=== PATIENT | male | born 1990 | race Caucasian/White ===

== ENCOUNTER 2019-10-18 11:37 | Emergency (ER) | payer MEDICARE, OTHER, SELFPAY ==
[2019-10-18 11:42] VITALS: BP 131/84; PULSE 78; RESP 16; TEMP 36.6; O2SAT 98; BMI 28.2
--- NOTE | 2019-10-18 11:54 | CT_ITS ---
PROCEDURE: CT ORBIT BI WO CON Patient Age:29Y CLINICAL HISTORY: FB in right eye Patient sharpening blade on lawn more 2 days ago when a piece of metal went into his eye patient got a piece out yesterday but still feels like there may be something there. COMPARISON: No exams were available for comparison TECHNIQUE: No IV contrast Helical axial images obtained with sagittal and coronal reformats. All CT scans at the facility use one or more dose reduction, viz: automated exposure control, ma/kV adjustment per patient size (including targeted exams where dose is matched to indication, i.e. head), or iterative reconstruction technique. FINDINGS: Orbits: No radiopaque foreign body is seen at either orbit with attention particularly directed to the right orbit Review of images in all 3 planes reveals no good evidence of metallic foreign body.. CT is exquisitely sensitive to metal.. There are some scattered slight relatively hyperdense individual pixels foci seen in 1 plane on this slightly grainy low photon scan, but when reviewed in all 3 planes these do not persist thus with no good evidence of metallic foreign body Both globes appears satisfactory and demonstrate normal density internally. No retrobulbar are pathology. Intra ocular muscles appear satisfactory. Optic nerve unremarkable. Only question perhaps some very minor is soft tissue swelling overlying right lid. The visualized frontal ethmoid sphenoid sinuses are clear. Left maxillary sinuses clear. There is a mucous retention cyst at posterior wall right maxillary sinus 15 mm size. Floor of maxillary sinuses not included on this study. Also note sigmoid deviation of the nasal septum on coronal views the lower portion septum with convexity to the left; and upper portion slight convexity rightward. On axial images the appears to tilts leftward. . Otherwise facial bones appear intact. Limited images through the inferior anterior portions of brain appears satisfactory. . IMPRESSION: No metallic foreign body evident right eye Orbits and globes appear intact Incidental observations: . 15 mm mucous retention cyst posterior right maxillary sinus otherwise visualized paranasal sinuses clear Dictated by: German Vega MD 10/18/2019 13:08 Electronically signed by German Vega MD in [facility] 10/18/2019 13:08
--- NOTE | 2019-10-18 12:09 | HMH.EDEYEP ---
ED Disposition Clinical Impression: Foreign body, eye Qualifiers: Encounter type: initial encounter Laterality: right Qualified Code(s): T15.91XA - Foreign body on external eye, part unspecified, right eye, initial encounter Disposition: Home, Self-Care Condition on Discharge: Good Instructions: DI for Corneal Foreign Body-Eye Additional Instructions: If symptoms are worsening or not improving over the next 24 hours, call Dr. Hobson at [phone] or return to the emergency department. Otherwise, follow-up with Dr. Hobson on Sunday for reevaluation. - Critical Care Critical Care Time: No Attestation: On 10/18/19, the high probability of a clinically significant, sudden or life threatening deterioration of the following system(s) required my full and direct attention, intervention and personal management. The time I documented below is in addition to time spent performing reported procedures but includes the following listed in this critical care notation. Medical Decision Making - Medical Records Medical records reviewed: Yes: I reviewed the patient's medical records. - Chauncey Inquiry Pt receiving controlled substance: No Vital Signs: 10/18/19 11:42 10/18/19 13:01 Temperature 97.9 F Temperature Source Oral Pulse Rate [Right Radial] 78 63 Respiratory Rate 16 Blood Pressure [Right Arm] 131/84 132/76 Blood Pressure Mean [Right Arm] 99 94 Blood Pressure Source [Right Arm] Manual Cuff/ Doppler Automatic Cuff Blood Pressure Position [Right Arm] Sitting Sitting 02 Sat by Pulse Oximetry 98 98 Oxygen Delivery Method Room Air Room Air Orders (Tests/Meds): ED MEDICATIONS Discontinued Medications Generic Name Dose Route Start Last Admin Trade Name Freq PRN Reason Stop Dose Admin Tetanus/Reduced Diphtheria/Acell Pertussis 0.5 ml 10/18/19 11:54 Adacel Tdap 0.5ml Syringe IM 10/18/19 11:55 .ONCE ONE - CT Data CT Scan: Other (orbits) Time Received: 13:[address] Reviewed: Yes: I have reviewed the patient's CT results Findings Narrative: No radiopaque foreign body Medical Decision Narrative: Patient does not have any signs of ruptured globe. CT scan shows no radiopaque foreign body. He does have a pinpoint area that may represent a rust ring at the 10 o'clock position over the iris. No visual changes per the patient. I discussed this case with Dr. Hobson who will see the patient early next week. Advised antibiotic cream and that his symptoms are getting worse or not improving within the next 24 hours to give him a call for more expeditious treatment. Eye Problem HPI - General Chief complaint: Eye Problems Stated complaint: AO [id number] FO in right eye Time Seen by Provider: 10/18/19 12:05 Mode of Arrival: Ambulatory Limitations: No Limitations Description of Symptoms (Recalled from ER Triage Doc. by RN): Pt reports possible f/b in R eye. Pt reports he was sharpening blades on mower 2 days ago when a piece of metal in his eye, states his brother got a piece of metal out of his eye yesterday but he still feels like there is something in there. - History of Present Illness HPI Narrative: This is a 29-year-old male with no significant past medical history who presents to the emergency department for concerns of possible metal retained in the right eye. He was grinding a mower blade 2 days ago when he got some metal in his eye. His brother tried to remove it with a Q-tip and got some of the metal out, but he still sees a small chano at the 10 o'clock position over the iris, out of range of the pupillary opening. He denies any visual changes. He does have an irritation sensation where the black spot on his irises. He has tried flushing his eye. Tetanus not up-to-date. No fevers. He wears glasses, no contacts. - Related Data Patient tetanus UTD: No Previous Rx's Medication Instructions Recorded azithromycin 250 mg tablet 250 mg PO .COMPLEX 5 Days #6 tab 08/12/18 cetirizine 10 mg
--- NOTE | 2019-10-18 12:25 | PC.NURSE ---
pt to CT
[2019-10-18 13:01] VITALS: BP 132/76; PULSE 63; O2SAT 98
[2019-10-18 13:31] VITALS: BP 132/75; PULSE 63; RESP 18; TEMP 36.6; O2SAT 98
--- NOTE | 2019-10-18 13:31 | PC.NURSE ---
visual acuity R 20/30 L 20/25
== END 2019-10-18 13:32 | disposition home or self-care (01) ==
PROVIDERS: Emergency Provider Emergency Medicine; PCP Physician Assistant
DX: T15.91XA Foreign body on external eye, part unspecified, right eye, initial encounter (principal); Z87.891 Personal history of nicotine dependence; Z23 Encounter for immunization
CPT/HCPCS: 70480; 90471; 90715; 99282

== ENCOUNTER → 2020-08-16 15:07 | Outpatient (CLI) | payer MEDICARE, OTHER, SELFPAY ==
[2020-08-16 15:17] LABS: Basophils # 0.1 K/mm3 (0-0.2); Basophils % 1.8 % (0.1-2.0); Eosinophils # 0.3 K/mm3 (0.0-0.4); Eosinophils % 5.3 % (0.1-12.0); Hemoglobin 15.1 g/dL (14.1-18.0); Lymphocytes # 1.7 K/mm3 (0.7-4.5); Lymphocytes % 31.1 % (10-50); Mean Corpuscular HGB Conc 32.8 g/dL (31.8-35.4); Mean Corpuscular Hemoglobin 28.1 pg (27.0-31.2); Mean Corpuscular Volume 85.7 fl (80-94); Monocytes # 0.4 K/mm3 (0.1-1.0); Monocytes % 7.7 % (1.7-9.3); Neutrophils # 2.9 K/mm3 (1.8-7.8); Platelet Count 236 K/mm3 (142-424); Red Blood Count 5.37 M/mm3 (4.60-6.20); White Blood Count 5.4 K/mm3 (4.8-10.8)
[2020-08-16 15:32] LABS: Chloride 104 mmol/L (98-107); Potassium 4.9 mmoL/L (3.5-5.1); Sodium 141 mmol/L (136-145)
[2020-08-16 15:34] LABS: Blood Urea Nitrogen 16 mg/dl (9-20); Estimated Glomerular Filt Rate 88 ml/min (>60); GFR (African American) 106 ML/MIN (>60)
[2020-08-16 15:35] LABS: Alanine Aminotransferase 53 U/L (12-78); Albumin Level 4.9 g/dl (3.5-5.0); Alkaline Phosphatase 63 U/L (38-126); Anion Gap 10.9 mEq/L (5-15); Aspartate Amino Transferase 43 U/L (17-59); Bilirubin,Total 0.6 mg/dl (0.2-1.3); Carbon Dioxide 31 mmol/L (22.0-30.0); Chol/HDL Ratio 4.2 (1-3.5); Cholesterol 192 mg/dl (140-200); Globulin 2.5 g/dL (1.3-3.2); Glucose 109 mg/dl (74-100); HDL Cholesterol 46 mg/dl (40-60); Total Protein,Serum 7.4 g/dl (6.3-8.2); Triglycerides 134 mg/dl (30-150); VLDL Cholesterol 27 mg/dL (0-40)
[2020-08-16 15:47] LABS: Direct LDL Cholesterol 117.84 mg/dL (100-129)
[2020-08-16 15:50] LABS: Free T4 (Free Thyroxine) 0.95 ng/dl (0.78-2.19)
[2020-08-16 15:52] LABS: 25-OH Vitamin D, Total 29.3 ng/mL (30-100)
[2020-08-16 16:18] LABS: Thyroid Stimulating Hormone 1.52 uIU/mL (0.465-4.68)
== END ==
PROVIDERS: Visit Provider Physician Assistant
DX: E78.5 Hyperlipidemia, unspecified (principal); Z00.00 Encounter for general adult medical examination without abnormal findings; E55.9 Vitamin D deficiency, unspecified
CPT/HCPCS: 80053; 80061; 82306; 84439; 84443; 85025

== ENCOUNTER → 2020-08-24 08:11 | Outpatient (CLI) | payer MEDICARE, OTHER, SELFPAY ==
--- NOTE | 2020-08-24 08:21 | US_ITS ---
PROCEDURE: US ABDOMEN LIMITED CLINICAL INDICATION: RUQ pain COMPARISON: No exams were available for comparison FINDINGS: PANCREAS: Unremarkable. No obvious mass or abnormal fluid collection. No ductal dilatation LIVER: No focal liver lesions demonstrated. Homogeneous echogenicity. No intrahepatic biliary ductal dilatation evident. There is appropriate direction of blood flow within a non dilated portal vein RIGHT KIDNEY: Unremarkable. Normal size and echogenicity. No hydronephrosis GALLBLADDER: No gallstones, gallbladder wall thickening, pericholecystic fluid, or biliary dilatation. Specular echoes are present in the gallbladder may be due to small amount sludge or debris. No shadowing stones. IMPRESSION: No gallstones apparent. There is a small amount of gallbladder sludge. Dictated by: Husam Rayo MD 08/24/2020 16:52 Husam Rayo MD in [facility] 08/24/2020 16:52
== END ==
PROVIDERS: PCP Physician Assistant; Visit Provider Physician Assistant
DX: R10.11 Right upper quadrant pain (principal)
CPT/HCPCS: 76705

== ENCOUNTER → 2020-09-13 12:00 | Outpatient (CLI) | payer MEDICARE, OTHER, SELFPAY ==
--- NOTE | 2020-09-13 12:01 | NM_ITS ---
PROCEDURE: NM HEPATOBILIARY W PHARM CLINICAL INDICATION: Abnormal ultrasound Abdominal pain COMPARISON: No exams were available for comparison TECHNIQUE: DOSE: 8.45 mCi technetium Choletec. Fatty meal was given with Ensure FINDINGS: Homogeneous activity is present within the hepatic parenchyma. Activity is present in the gallbladder by 30 minutes. Activity is present in the small bowel by 10 minutes. The gallbladder ejection fraction is calculated to be 30 minutes. CCK-The patient did not report pain or other symptoms during fatty meal ingestion. IMPRESSION: 1. No evidence of common or cystic duct obstruction. 2. The gallbladder is visualized after the small bowel and the ejection fraction is slightly low at 30 percent. These findings may be seen with gallbladder dyskinesia.. Correlation with clinical parameters are needed. Dictated by: Husam Rayo MD 09/14/2020 16:05 Husam Rayo MD in [facility] 09/14/2020 16:05
== END ==
PROVIDERS: PCP Physician Assistant; Visit Provider Physician Assistant
DX: R93.2 Abnormal findings on diagnostic imaging of liver and biliary tract (principal)
CPT/HCPCS: 78227; A9537

== ENCOUNTER → 2020-10-13 13:14 | Outpatient (CLI) | payer MEDICARE, OTHER, SELFPAY ==
[2020-10-13 13:38] LABS: Basophils # 0.1 K/mm3 (0-0.2); Basophils % 1.3 % (0.1-2.0); Eosinophils # 0.4 K/mm3 (0.0-0.4); Eosinophils % 5.9 % (0.1-12.0); Hematocrit 44.8 % (42.0-52.0); Hemoglobin 15.2 g/dL (14.1-18.0); Lymphocytes # 1.9 K/mm3 (0.7-4.5); Lymphocytes % 30.5 % (10-50); Mean Corpuscular Hemoglobin 28.4 pg (27.0-31.2); Mean Corpuscular Volume 83.7 fl (80-94); Mean Platelet Volume 7.4 fl (7.4-10.4); Monocytes # 0.4 K/mm3 (0.1-1.0); Neutrophils # 3.5 K/mm3 (1.8-7.8); Neutrophils % 56.3 % (37.0-80.0); Platelet Count 245 K/mm3 (142-424); Red Blood Count 5.36 M/mm3 (4.60-6.20); Red Cell Distribution Width 12.5 % (11.5-17.5); White Blood Count 6.3 K/mm3 (4.8-10.8)
[2020-10-13 14:17] LABS: Alanine Aminotransferase 39 U/L (12-78); Albumin Level 4.7 g/dl (3.5-5.0); Albumin/Globulin Ratio 1.8 (1.1-1.8); Alkaline Phosphatase 61 U/L (38-126); Anion Gap 11.1 mEq/L (5-15); Aspartate Amino Transferase 34 U/L (17-59); Bilirubin,Total 0.9 mg/dl (0.2-1.3); Blood Urea Nitrogen 6 mg/dl (9-20); Calcium 9.6 mg/dl (8.4-10.2); Carbon Dioxide 32 mmol/L (22.0-30.0); Chloride 101 mmol/L (98-107); Estimated Glomerular Filt Rate 99 ml/min (>60); GFR (African American) 120 ML/MIN (>60); Globulin 2.6 g/dL (1.3-3.2); Glucose 83 mg/dl (74-100); Potassium 5.1 mmoL/L (3.5-5.1); Sodium 139 mmol/L (136-145); Total Protein,Serum 7.3 g/dl (6.3-8.2)
== END ==
PROVIDERS: Visit Provider Surgery
DX: J30.9 Allergic rhinitis, unspecified (principal); R10.11 Right upper quadrant pain
CPT/HCPCS: 36415; 80053; 85025; U0003

== ENCOUNTER 2020-10-15 08:19 | Day surgery (SDC) | payer MEDICARE, OTHER, SELFPAY ==
[2020-10-06 15:08] VITALS: BMI 28.8
[2020-10-15] VITALS (11 sets, daily range): BP systolic 122–148; BP diastolic 76–87; PULSE 57–77; RESP 12–18; TEMP 36.3–43; O2SAT 94–99
--- NOTE | 2020-10-15 08:44 | SUR.PREOP ---
Abdomen clipped in preop by Manjula TAVARES
--- NOTE | 2020-10-15 09:13 | HMH.ANESCL ---
[facility] Anesthesia Checklist - Patient Identification Patient Identification: Arm Band - Structural Data Admitted From: Home Planned Operative Procedure/s: Lap. cholecystectomy Consent for Planned Operative Procedure(s) Verified: Yes - NPO Status Verified Time NPO: 00:00 - Additional verifications Anesthesia Reactions: No Hx Blood Transfusions: No Blood Transfusion Reaction: No - Airway Assessment C-Spine Mobility Assessed: Yes TMJ Mobility Assessed: Yes Dentition: Good Dentition - Neurological Assessment Level of Consciousness: Awake Hx Seizures: No Numbness or tingling in extremities: No - Anesthesia Plan Anesthesia Risk discussed: Yes Anesthesia Plan: Verified ASA Class: I Anesthesia Type: General [facility] History I have reviewed the patient's past medical history: Yes Medical History: Denies:: Cancer, Diabetes Mellitus Type 1, Diabetes Mellitus Type 2, Hyperlipidemia, Hypertension, Internal Pacemaker, MRSA, Pulmonary Embolism, Renal Disease, Seizures *Have you ever received a pneumonia vaccine?: No *Have you received a flu vaccine this season?: No Other Medical History: Denies: Blood Transfusion Reaction Anesthesia experience/problems:: None Other Surgeries: Yes: No Previous Surgery. No: Pacemaker Amputation: No Fractures: No - *Social History Last grade of school completed: High school graduate Smoking Status: Current some day smoker Tobacco Type: smokeless tobacco # Packs/Day (cigarettes): 1 Alcohol Intake: current Alcohol Intake Frequency:: a few times a month Substance Use Type: denies use *Occupational Status:: employed Housing: house Household Members: family *Travel in the last 8 weeks: None Family Hx:: Diabetes, Hyperlipidemia, Hypertension, Stroke
--- NOTE | 2020-10-15 10:44 | HMH.OPNOTE ---
Date of procedure: 10/15/20 Pre-op Diagnosis:: Biliary dyskinesia Post-op Diagnosis:: Same Procedure performed:: Laparoscopic cholecystectomy Surgeon:: Jose Montez MD HEAD OF BIOLOGY:: Ney Ryan Anesthesia: GETA Estimated blood loss (mL): 15 Operative findings:: Infundibular thickening Operative note:: After informed consent was obtained, the patient was taken to the operating room and placed in the supine position. General anesthesia was induced and the abdomen was prepped and draped in a sterile fashion. After infiltration with local anesthetic an infraumbilical incision was made. A Veress needle was placed in position. The abdomen was insufflated. A 5 mm optical trocar was placed in position. Under direct visualization, a 12 mm trocar was placed in the subxiphoid position and 2 additional 5 mm trocars were placed in the right upper quadrant. The gallbladder was elevated up and over the liver margin. The tissue around the cystic duct was carefully dissected. 3 clips were placed proximally and the duct was transected with harmonic marcy. Harmonic marcy were then utilized to dissect the gallbladder away from the liver margin with careful attention to the control of the cystic artery. The gallbladder was placed in a retrieval bag and removed through the subxiphoid trocar site. The right upper quadrant was thoroughly irrigated. No active bleeding or bile leak was noted. Fascia at the subxiphoid trocar site was reapproximated utilizing the NeoClose device. The remaining trocars were removed. All wounds were irrigated and skin was closed with 4-0 Monocryl in a subcuticular fashion. Steri-Strips were applied. The patient's anesthetic agents were reversed and extubation was completed prior to transfer to recovery in stable condition. Condition: stable Disposition: PACU Specimens:: Gallbladder and contents Complications:: No immediate
--- NOTE | 2020-10-15 10:55 | HMH.ANESI ---
[facility] Anesthesia Record Part I Intake, IV Amount: 1,500 Estimated blood loss (mL): 0 Urine output (mL): 0 Blood Pressure: 145/87 SaO2: 95 Pulse Rate: 72 Respiratory Rate: 12 Temperature: 97.5 F Patient is:: Awake, Stable Stable to PACU at:: 10:55
--- NOTE | 2020-10-15 14:38 | P.PN_ITS ---
[facility] Anesthesia Record Part II Discharge Time: 11:25 Destination: Surgical Day Care (OP Surgery) PACU nurse assessment reviewed?: Yes Patient Condition:: Good Anesthesia Complications:: None Swallowing reflex intact?: Yes Cyanosis?: No Blood Pressure: 141/81 Pulse Rate: 57 Temperature: 97.4 F Mental Status: Alert & Oriented Pain level:: 0 Nausea and/or vomitting:: None Intake, IV Amount: 0
== END 2020-10-15 12:05 | disposition home or self-care (01) ==
LOC: OR 08:20
PROVIDERS: PCP Physician Assistant; Visit Provider Surgery
PROC: 0FT44ZZ Resection of Gallbladder, Percutaneous Endoscopic Approach (ICD-10-PCS; CPT 47562; principal; 2020-10-15 09:45)
DX: K82.8 Other specified diseases of gallbladder (principal); Z72.0 Tobacco use; Z83.3 Family history of diabetes mellitus; Z82.3 Family history of stroke; Z82.49 Family history of ischemic heart disease and other diseases of the circulatory system; Z83.438 Family history of other disorder of lipoprotein metabolism and other lipidemia; Z79.899 Other long term (current) drug therapy
CPT/HCPCS: 47562; 88304; J2405; J2710

== ENCOUNTER → 2022-06-19 23:30 | Outpatient (CLI) | payer MEDICARE, OTHER, SELFPAY ==
[2022-06-19 18:20] LABS: Alanine Aminotransferase 52 U/L (12-78); Albumin/Globulin Ratio 1.7 (1.1-1.8); Alkaline Phosphatase 61 U/L (38-126); Anion Gap 12.6 mEq/L (5-15); Aspartate Amino Transferase 41 U/L (17-59); Bilirubin,Total 0.6 mg/dl (0.2-1.3); Blood Urea Nitrogen 12 mg/dl (9-20); Calcium 9.4 mg/dl (8.4-10.2); Carbon Dioxide 31 mmol/L (22.0-30.0); Chloride 105 mmol/L (98-107); Chol/HDL Ratio 4.6 (1-3.5); Cholesterol 218 mg/dl (140-200); Estimated Glomerular Filt Rate 98 ml/min (>60); GFR (African American) 118 ML/MIN (>60); Globulin 2.9 g/dL (1.3-3.2); Glucose 96 mg/dl (74-100); HDL Cholesterol 47 mg/dl (40-60); Potassium 4.6 mmoL/L (3.5-5.1); Sodium 144 mmol/L (136-145); Total Protein,Serum 7.9 g/dl (6.3-8.2); Triglycerides 327 mg/dl (30-150); VLDL Cholesterol 65 mg/dL (0-40)
[2022-06-19 18:29] LABS: Basophils # 0.2 K/mm3 (0-0.2); Basophils % 2.5 % (0.1-2.0); Eosinophils # 0.4 K/mm3 (0.0-0.4); Eosinophils % 5.6 % (0.1-12.0); Lymphocytes # 1.8 K/mm3 (0.7-4.5); Lymphocytes % 26.6 % (10-50); Mean Corpuscular HGB Conc 33.4 g/dL (31.8-35.4); Mean Corpuscular Hemoglobin 28.2 pg (27.0-31.2); Mean Corpuscular Volume 84.5 fl (80-94); Mean Platelet Volume 8.2 fl (7.4-10.4); Monocytes # 0.4 K/mm3 (0.1-1.0); Monocytes % 5.4 % (1.7-9.3); Neutrophils # 4.1 K/mm3 (1.8-7.8); Neutrophils % 59.8 % (37.0-80.0); Platelet Count 255 K/mm3 (142-424); Red Blood Count 5.68 M/mm3 (4.60-6.20); Red Cell Distribution Width 12.9 % (11.5-17.5); White Blood Count 6.8 K/mm3 (4.8-10.8)
[2022-06-19 18:32] LABS: Direct LDL Cholesterol 123.13 mg/dL (100-129)
[2022-06-19 18:37] LABS: 25-OH Vitamin D, Total 35.4 ng/mL (30-100)
[2022-06-19 19:29] LABS: Thyroid Stimulating Hormone 1.48 uIU/mL (0.465-4.68)
== END ==
PROVIDERS: PCP Physician Assistant; Visit Provider Physician Assistant
DX: Z00.00 Encounter for general adult medical examination without abnormal findings (principal); Z83.3 Family history of diabetes mellitus; E55.9 Vitamin D deficiency, unspecified; J30.9 Allergic rhinitis, unspecified; E78.00 Pure hypercholesterolemia, unspecified
CPT/HCPCS: 80053; 80061; 82306; 84443; 85025

== ENCOUNTER 2024-06-07 11:44 | Emergency (ER) | payer MEDICARE, OTHER, SELFPAY ==
[2024-06-07] VITALS (11 sets, daily range): BP systolic 128–161; BP diastolic 79–98; PULSE 63–85; RESP 18–20; TEMP 36.4–36.8; O2SAT 96–98; BMI 27.3
--- NOTE | 2024-06-07 12:05 | HMH.EDGENADL ---
Discharge Plan Disposition Patient Disposition: Home, Self-Care Condition: Good Prescriptions Prescriptions: New pantoprazole [Protonix] 40 mg tablet,delayed release (DR/EC) 40 mg PO DAILY 28 Days Qty: 28 0RF No Action fluticasone propionate 16 GM spray,suspension 1 spray INTRANASAL QDAY Rx Instructions: administer into each nostril Referrals Follow up/Referrals: Janine Blue PA [Primary Care Provider] - See instructions Clinical Impressions Clinical Impression: Esophageal reflux Instructions Patient Instructions: DI for Acute Abdominal Pain Print Language Print Language: Indian Discharge ED Provider: Arturo Kohli General Adult HPI <Aura Kaminski (ED), [employer] TECH[employer]ICAL OFFICER - Last Filed: 06/07/24 13:18> General Chief complaint: Abdominal Pain Stated complaint: acid reflux, stomach pain Time Seen by Provider: 06/07/24 11:56 Mode of Arrival: Ambulatory Source of Information: Patient Limitations: No Limitations Description of Symptoms (Recalled from ER Triage Doc. by RN): pt is here for acid reflux and burning stomach pain x 1 week, he has tried taking tums and prilosec but help. denies any n/v/d and fever History of Present Illness HPI narrative: This is a 34-year-old male who presents to the ED today for diffuse abdominal tenderness starting in the right upper quadrant moving to the epigastric area down to the umbilicus. He states that he has had reflux for over a week. He has worsening reflux with spicy foods and coffee. He says the pain goes up into his esophagus. He does take nyre-pze-[id number] Zantac for his pain and this does not help. He denies vomiting but occasional nausea. No diarrhea. He has occasional chest pain. He says this resolves pretty quickly. He has history of a cholecystectomy. No other abdominal surgeries. Patient denies any other history. Related Data Home Medications ?Medication ?Instructions ?Recorded ?Confirmed fluticasone propionate 50 1 spray intranasal QDAY allergies 10/15/20 06/19/22 mcg/actuation nasal spray,suspension Previous Rx's ?Medication ?Instructions ?Recorded pantoprazole 40 mg tablet,delayed 40 mg PO DAILY 4 weeks #28 tabs 06/07/24 release (Protonix) Allergies Allergy/AdvReac Type Severity Reaction Status Date / Time No Known Allergies Allergy Verified 06/19/22 14:01 PFS <Aura Kaminski (ED), [employer]ICAL OFFICER - Last Filed: 06/07/24 13:18> [facility] Disclaimer: The information contained in this section may have been updated after the patient was seen, as this information can be updated by other users. Medical History Allergic rhinitis Family history of diabetes mellitus Social History Smoking Status: Never smoker second hand exposure: No alcohol intake: current alcohol intake frequency: a few times a month substance use type: denies use current occupational status: employed Travel in the last 8 weeks: None household members: family housing: house current occupation: farming current occupational exposures/hazards: Yes caffeine: Yes Have you lived/traveled outside [place] in past 30 days?: No Contact w/someone who lives/traveled outside US past 30 days?: No Exposure to someone with infectious disease in past 14 days?: No Do you have a fever (greater than 100.4 F or 38 C)?: No Have you tested positive for COVID-19: No Exposed to someone with COVID-19 in past 14 days?: No Do you have a sore throat?: No Do you have a cough?: No Do you have any weakness?: No Do you have any diarrhea?: No Are you experiencing any unusual bleeding?: No Do you have any muscle aches/pain?: No Do you have any abdominal pain?: No Are you experiencing loss of taste or smell?: No Other Medical History Have you received the Flu Vaccine for this season: No Have you received the Pneumonia Vaccine: No <Aura Kaminski (ED), [employer] TECH[employer]ICAL OFFICER - Last Filed: 06/07/24 13:18> ROS Obtained: Yes Systems reviewed as appropriate & no additional complaints except as documented Constitutional Constitutional: Reports as per HPI Physical Exam <Aura Kaminski (ED), [employer] TECH[employer]ICAL OFFICER - Last Filed: 06/07/24 13:18> General General appearance: alert and in no apparent distress Head Head exam: atraumatic and normocephalic Eye Eye exam: Present normal appearance, PERRL and EOMI ENT ENT exam: Present normal exam, normal oropharynx and mucous membranes moist Neck Neck exam: Present normal inspection, full ROM and trachea midline Chest Chest inspection: Present normal inspection Respiratory Respiratory exam: Present normal lung sounds bilaterally Cardiovascular Cardiovascular exam: Present regular rate, normal rhythm, normal heart sounds, +S1 and +S2 Abdominal Exam Abdominal exam: Present soft, tenderness (Right upper quadrant, epigastric area, diffuse) and normal bowel sounds Extremities Exam Extremities exam: Present normal inspection, full ROM and normal capillary refill Neurological Exam Neurological exam: Present alert, oriented X3 and normal gait Skin Skin exam: Present warm, dry and intact Medical Decision Making <Aura Kaminski (ED), [employer] TECH[employer]ICAL OFFICER - Last Filed: 06/07/24 13:18> Medical Records Screening: Per USPSTF and CDC recommendations, given the prevalence of disease in our region, it is our hospital?s policy to screen for HIV and viral Hepatitis for all patients aged 18 and over and those with ongoing risk factors. Chauncey Inquiry Pt receiving controlled substance: No Chauncey was queried for this patient: No Vital Signs: 06/07/24 11:47 06/07/24 12:00 06/07/24 12:10 Temperature 97.6 F Temperature Source Oral Pulse Rate 75 73 Pulse Rate [Left Radial] 85 Respiratory Rate 20 18 18 Blood Pressure 161/89 H 152/95 H Blood Pressure [Right Arm] 161/89 H Blood Pressure Mean 110 114 Blood Pressure Mean [Right Arm] 113 Blood Pressure Source Blood Pressure Position 02 Sat by Pulse Oximetry 97 98 96 Oxygen Delivery Method Room Air 06/07/24 12:30 06/07/24 12:40 06/07/24 12:45 Temperature Temperature Source Pulse Rate 77 75 72 Pulse Rate [Left Radial] Respiratory Rate 18 Blood Pressure 139/98 H 148/83 H 136/87 Blood Pressure [Right Arm] Blood Pressure Mean 109 Blood Pressure Mean [Right Arm] Blood Pressure Source Blood Pressure Position 02 Sat by Pulse Oximetry 98 98 97 Oxygen Delivery Method 06/07/24 12:50 06/07/24 12:55 06/07/24 13:00 Temperature Temperature Source Pulse Rate 77 73 63 Pulse Rate [Left Radial] Respiratory Rate Blood Pressure 132/79 129/92 H 130/91 H Blood Pressure [Right Arm] Blood Pressure Mean Blood Pressure Mean [Right Arm] Blood Pressure Source Blood Pressure Position 02 Sat by Pulse Oximetry 97 98 98 Oxygen Delivery Method 06/07/24 13:04 06/07/24 13:27 Temperature 98.2 F Temperature Source Oral Pulse Rate 71 70 Pulse Rate [Left Radial] Respiratory Rate 18 Blood Pressure 139/98 H 128/79 Blood Pressure [Right Arm] Blood Pressure Mean Blood Pressure Mean [Right Arm] Blood Pressure Source Automatic Cuff Blood Pressure Position Sitting 02 Sat by Pulse Oximetry 98 Oxygen Delivery Method Room Air Lab Data Lab Results 06/07/24 12:00: WBC 6.7, RBC 5.34, Hgb 14.8, Hct 43.8, MCV 82.0, MCH 27.7, MCHC 33.8, RDW 11.9, Plt Count 224, MPV 9.2, Neut % (Auto) 42.4, Lymph % (Auto) 40.6, Ellis % (Auto) 7.6, Eos % (Auto) 7.0, Baso % (Auto) 1.8, Neut # (Auto) 2.9, Lymph # (Auto) 2.7, Ellis # (Auto) 0.5, Eos # (Auto) 0.5 H, Baso # (Auto) 0.1, Sodium 138, Potassium 4.2, Chloride 101, Carbon Dioxide 31 H, Anion Gap 10.2, BUN 17, Creatinine 0.90, Estimated Creat Clear 134, Estimated GFR 97, Est GFR ( Amer) 117, Glucose 95, Calcium 9.6, Total Bilirubin 0.6, AST 39, ALT 53, Alkaline Phosphatase 54, Troponin I < 0.01, Total Protein 7.4, Albumin 4.8, Globulin 2.6, Albumin/Globulin Ratio 1.8, Lipase 173 06/07/24 12:00 06/07/24 12:00 Orders (Tests/Meds): ED MEDICATIONS Discontinued Medications Generic Name Dose Route Start Last Admin Trade Name Freq PRN Reason Stop Dose Admin Al Hydrox/Mg Hydrox/Simethicone 30 ml 06/07/24 12:02 06/07/24 12:15 Aluminum/Magnesium/Simethicone 30ml Udc PO 06/07/24 12:03 30 ml ONCE ONE Administration Famotidine 20 mg 06/07/24 12:01 06/07/24 12:16 Famotidine 20mg/2ml Vial IV 06/07/24 12:02 20 mg ONCE ONE Administration Iopamidol 75 ml 06/07/24 12:23 06/07/24 12:24 Iopamidol-370 (76%);100ml Bottle IV 06/07/24 12:24 75 ml ONCE ONE Administration Sodium Chloride 8 ml 06/07/24 12:01 Sodium Chloride 0.9% 10ml Vial IV 07/07/24 12:00 NEEDED PRN dilute pepcid Sodium Chloride 10 ml 06/07/24 12:23 06/07/24 12:24 Sodium Chloride 0.9% 10ml Syr (Rad Only) IV 07/07/24 12:22 10 ml NEEDED PRN Administration Maintain IV Site ORDERS Category Date Time Status CT abdomen pelvis w con Stat Cat Scan 06/07/24 12:06 Completed CBC [Complete Blood Count Auto Diff] Stat Lab 06/07/24 12:00 Completed Comprehensive Metabolic Panel Stat Lab 06/07/24 12:00 Completed Lipase Stat Lab 06/07/24 12:00 Completed Troponin I Q3H Lab 06/07/24 15:15 Ordered Troponin I Q3H Lab 06/07/24 18:15 Ordered Troponin I Stat Lab 06/07/24 12:00 Completed Medical Decision Narrative: Insert review patient is a 34-year-old male presenting to the emergency department for evaluation of epigastric pain, reflux. Patient is hemodynamically stable and nontoxic-appearing upon arrival, afebrile. Differential diagnosis includes reflux, CAD, viral illness, among others. Workup will be conducted with hematologic labs, specific imaging, provocative tests. Initial inventions include GI cocktail, famotidine. Initial workup reviewed by me hematologic labs are remarkable for nothing acute. Imaging informally interpreted by me and remarkable for nothing acute. Formal imaging read remarkable for enlarged liver. Upon repeat evaluation patient's pain is improved <Arturo Kohli MD - Last Filed: 06/07/24 13:31> Vital Signs: 06/07/24 11:47 06/07/24 12:00 06/07/24 12:10 Temperature 97.6 F Temperature Source Oral Pulse Rate 75 73 Pulse Rate [Left Radial] 85 Respiratory Rate 20 18 18 Blood Pressure 161/89 H 152/95 H Blood Pressure [Right Arm] 161/89 H Blood Pressure Mean 110 114 Blood Pressure Mean [Right Arm] 113 Blood Pressure Source Blood Pressure Position 02 Sat by Pulse Oximetry 97 98 96 Oxygen Delivery Method Room Air 06/07/24 12:30 06/07/24 12:40 06/07/24 12:45 Temperature Temperature Source Pulse Rate 77 75 72 Pulse Rate [Left Radial] Respiratory Rate 18 Blood Pressure 139/98 H 148/83 H 136/87 Blood Pressure [Right Arm] Blood Pressure Mean 109 Blood Pressure Mean [Right Arm] Blood Pressure Source Blood Pressure Position 02 Sat by Pulse Oximetry 98 98 97 Oxygen Delivery Method 06/07/24 12:50 06/07/24 12:55 06/07/24 13:00 Temperature Temperature Source Pulse Rate 77 73 63 Pulse Rate [Left Radial] Respiratory Rate Blood Pressure 132/79 129/92 H 130/91 H Blood Pressure [Right Arm] Blood Pressure Mean Blood Pressure Mean [Right Arm] Blood Pressure Source Blood Pressure Position 02 Sat by Pulse Oximetry 97 98 98 Oxygen Delivery Method 06/07/24 13:04 06/07/24 13:27 Temperature 98.2 F Temperature Source Oral Pulse Rate 71 70 Pulse Rate [Left Radial] Respiratory Rate 18 Blood Pressure 139/98 H 128/79 Blood Pressure [Right Arm] Blood Pressure Mean Blood Pressure Mean [Right Arm] Blood Pressure Source Automatic Cuff Blood Pressure Position Sitting 02 Sat by Pulse Oximetry 98 Oxygen Delivery Method Room Air Lab Data Lab Results 06/07/24 12:00: WBC 6.7, RBC 5.34, Hgb 14.8, Hct 43.8, MCV 82.0, MCH 27.7, MCHC 33.8, RDW 11.9, Plt Count 224, MPV 9.2, Neut % (Auto) 42.4, Lymph % (Auto) 40.6, Ellis % (Auto) 7.6, Eos % (Auto) 7.0, Baso % (Auto) 1.8, Neut # (Auto) 2.9, Lymph # (Auto) 2.7, Ellis # (Auto) 0.5, Eos # (Auto) 0.5 H, Baso # (Auto) 0.1, Sodium 138, Potassium 4.2, Chloride 101, Carbon Dioxide 31 H, Anion Gap 10.2, BUN 17, Creatinine 0.90, Estimated Creat Clear 134, Estimated GFR 97, Est GFR ( Amer) 117, Glucose 95, Calcium 9.6, Total Bilirubin 0.6, AST 39, ALT 53, Alkaline Phosphatase 54, Troponin I < 0.01, Total Protein 7.4, Albumin 4.8, Globulin 2.6, Albumin/Globulin Ratio 1.8, Lipase 173 Orders (Tests/Meds): ED MEDICATIONS Discontinued Medications Generic Name Dose Route Start Last Admin Trade Name Freq PRN Reason Stop Dose Admin Al Hydrox/Mg Hydrox/Simethicone 30 ml 06/07/24 12:02 06/07/24 12:15 Aluminum/Magnesium/Simethicone 30ml Udc PO 06/07/24 12:03 30 ml ONCE ONE Administration Famotidine 20 mg 06/07/24 12:01 06/07/24 12:16 Famotidine 20mg/2ml Vial IV 06/07/24 12:02 20 mg ONCE ONE Administration Iopamidol 75 ml 06/07/24 12:23 06/07/24 12:24 Iopamidol-370 (76%);100ml Bottle IV 06/07/24 12:24 75 ml ONCE ONE Administration Sodium Chloride 8 ml 06/07/24 12:01 Sodium Chloride 0.9% 10ml Vial IV 07/07/24 12:00 NEEDED PRN dilute pepcid Sodium Chloride 10 ml 06/07/24 12:23 06/07/24 12:24 Sodium Chloride 0.9% 10ml Syr (Rad Only) IV 07/07/24 12:22 10 ml NEEDED PRN Administration Maintain IV Site ORDERS Category Date Time Status CT abdomen pelvis w con Stat Cat Scan 06/07/24 12:06 Completed CBC [Complete Blood Count Auto Diff] Stat Lab 06/07/24 12:00 Completed Comprehensive Metabolic Panel Stat Lab 06/07/24 12:00 Completed Lipase Stat Lab 06/07/24 12:00 Completed Troponin I Q3H Lab 06/07/24 15:15 Ordered Troponin I Q3H Lab 06/07/24 18:15 Ordered Troponin I Stat Lab 06/07/24 12:00 Completed ECG Data Tracing #1: I reviewed this ECG and interpreted as documented below: (Ventricular rate 73 bpm with no acute ischemic change. RI 171, QRS 97, QTc 394 with normal axis) Medical Decision Narrative: Insert review patient is a 34-year-old male presenting to the emergency department for evaluation of epigastric pain, reflux. Patient is hemodynamically stable and nontoxic-appearing upon arrival, afebrile. Differential diagnosis includes reflux, CAD, viral illness, among others. Workup will be conducted with hematologic labs, specific imaging, provocative tests. Initial inventions include GI cocktail, famotidine. Initial workup reviewed by me hematologic labs are remarkable for nothing acute. Imaging informally interpreted by me and remarkable for nothing acute. Formal imaging read remarkable for enlarged liver. Upon repeat evaluation patient's pain is improved I was consulted by the KASHIF, and we discussed the complexity of the problems being addressed. I approved the treatment and management plan for this patient's care in the Emergency Department, thus performing a substantive portion of the medical decision making. I independently interpreted patient's workup. Nonactionable hematologic labs. Lipase also negative. CT scan of the abdomen and pelvis was independently interpreted by me and no acute intra-abdominal abnormality at all. Status post cholecystectomy. Because patient at baseline without signs or symptoms of clinical decompensation, deemed appropriate for discharge. Results were relayed to patient who voiced understanding and were agreeable to outpatient management and follow up. I discussed my clinical impression with patient and answered all questions. At this time, the evidence for any other entities in the differential is insufficient to warrant any further testing or ED observation. This was explained as well. Advisory was given that persistent or worsening symptoms require further evaluation. I confirmed the understanding of this discussion. Arturo Kohli MD Critical Care <Aura Kaminski (ED), [employer] TECHNICAL OFFICER - Last Filed: 06/07/24 13:18> Critical Care Time Critical Care Time: No
--- NOTE | 2024-06-07 12:06 | CT_ITS ---
PROCEDURE INFORMATION: Exam: CT Abdomen And Pelvis With Contrast Exam date and time: 06/07/2024 12:19 PM Age: 34 years old Clinical indication: Abdominal pain; Generalized TECHNIQUE: Imaging protocol: Computed tomography of the abdomen and pelvis with contrast. Radiation optimization: All CT scans at this facility use at least one of these dose optimization techniques: automated exposure control; mA and/or kV adjustment per patient size (includes targeted exams where dose is matched to clinical indication); or iterative reconstruction. Contrast material: ISOVUE; Contrast volume: 75 ml; Contrast route: IV; COMPARISON: [facility] 09/13/2020 12:11 PM FINDINGS: Lungs: Minor atelectasis of the right lung base. Liver: Hepatic steatosis. No focal liver lesion is identified. Mild hepatomegaly. The liver measures about 18.5 cm in craniocaudal dimension. Gallbladder and biliary ducts: Cholecystectomy. Pancreas: The pancreas is normal in appearance. No evidence of pancreatic ductal dilatation. Spleen: The spleen is normal in appearance. Adrenal glands: The adrenal glands are normal in appearance. Kidneys and ureters: The kidneys are normal in appearance. No evidence of hydronephrosis or hydroureter. No nephroureteral calculi are identified. Stomach and bowel: The small bowel loops are not thickened and are nondilated. The colon is unremarkable. Appendix: The appendix is normal in appearance. No evidence of appendicitis. Intraperitoneal space: Unremarkable. No free air. No significant fluid collection. Vasculature: Unremarkable. No abdominal aortic aneurysm. Lymph nodes: Unremarkable. No enlarged lymph nodes. Urinary bladder: The urinary bladder is normal in appearance. Reproductive: Unremarkable as visualized. Bones/joints: No acute osseous lesions. Soft tissues: Small fat containing periumbilical hernia. IMPRESSION: 1. Hepatic steatosis and mild hepatomegaly. 2. No CT evidence of acute intra-abdominal pathology.
[2024-06-07 12:08] LABS: Basophils # 0.1 K/mm3 (0-0.2); Basophils % 1.8 % (0.1-2.0); Eosinophils # 0.5 K/mm3 (0.0-0.4); Hematocrit 43.8 % (42.0-52.0); Hemoglobin 14.8 g/dL (14.1-18.0); Lymphocytes # 2.7 K/mm3 (0.7-4.5); Lymphocytes % 40.6 % (10-50); Mean Corpuscular HGB Conc 33.8 g/dL (31.8-35.4); Mean Corpuscular Hemoglobin 27.7 pg (27.0-31.2); Mean Platelet Volume 9.2 fl (7.4-10.4); Monocytes # 0.5 K/mm3 (0.1-1.0); Monocytes % 7.6 % (1.7-9.3); Neutrophils # 2.9 K/mm3 (1.8-7.8); Neutrophils % 42.4 % (37.0-80.0); Platelet Count 224 K/mm3 (142-424); Red Blood Count 5.34 M/mm3 (4.60-6.20); Red Cell Distribution Width 11.9 % (11.5-17.5); White Blood Count 6.7 K/mm3 (4.8-10.8)
[2024-06-07 12:10] LABS: Albumin Level 4.8 g/dl (3.5-5.0); Chloride 101 mmol/L (98-107); Potassium 4.2 mmoL/L (3.5-5.1); Sodium 138 mmol/L (136-145)
[2024-06-07 12:13] LABS: Alanine Aminotransferase 53 U/L (12-78); Albumin/Globulin Ratio 1.8 (1.1-1.8); Alkaline Phosphatase 54 U/L (38-126); Anion Gap 10.2 mEq/L (5-15); Aspartate Amino Transferase 39 U/L (17-59); Bilirubin,Total 0.6 mg/dl (0.2-1.3); Blood Urea Nitrogen 17 mg/dl (9-20); Carbon Dioxide 31 mmol/L (22.0-30.0); Creatinine Clearance Estimated 134 mL/min (50-200); Estimated Glomerular Filt Rate 97 ml/min (>60); GFR (African American) 117 ML/MIN (>60); Globulin 2.6 g/dL (1.3-3.2); Lipase 173 U/L (23-300); Total Protein,Serum 7.4 g/dl (6.3-8.2)
[2024-06-07 12:14] LABS: Calcium 9.6 mg/dl (8.4-10.2); Glucose 95 mg/dl (74-100)
[2024-06-07] MEDS: ALUMINUM/MAGNESIUM/SIMETHICONE 30ML UDC 30 ML PO (12:15)
[2024-06-07] MEDS: FAMOTIDINE 20MG/2ML VIAL 20 MG IV (12:16)
[2024-06-07] MEDS: SODIUM CHLORIDE 0.9% 10ML SYR (RAD ONLY) 10 ML IV (12:24)
[2024-06-07] MEDS: IOPAMIDOL-370 (76%);100ML BOTTLE 75 ML IV (12:24)
[2024-06-07 12:26] LABS: Troponin I < 0.01 ng/ml (0.00-0.034)
--- NOTE | 2024-06-07 12:29 | ECG_ITS ---
APPROVED REPORT Exam: Resting ECG HR:73 bpm ECG Measurements Heart Rate 73 AXES FL 171 P 69 QRSd 97 QRS 87 QT 369 T 54 QTc 394 Conclusion SINUS RHYTHM NORMAL ECG Electronically signed by : KURT MANDEL, 06/07/2024 15:42:23
== END 2024-06-07 13:30 | disposition home or self-care (01) ==
PROVIDERS: Nurse Practitioner; Emergency Provider Emergency Medicine; PCP Physician Assistant
DX: K21.9 Gastro-esophageal reflux disease without esophagitis (principal); R10.11 Right upper quadrant pain; R10.13 Epigastric pain
CPT/HCPCS: 74177; 80053; 83690; 84484; 85025; 93005; 96374; 99285; Q9967; S0028